=== PATIENT | female | born 1995 | race Caucasian/White ===

== ENCOUNTER 2016-09-17 10:11 | Emergency (ER) | payer MEDICAID ==
[~2016-09-17] VITALS: Ht 167.6 cm; Wt 153.0 kg
[2016-09-17] MEDS ORDERED: SODIUM CHLORIDE FLUSH 10ML SYR IVF ONE (11:00)
[2016-09-17] MEDS ORDERED: SODIUM CHLORIDE 0.9% 1,000ML IVBOLUS ONE (11:00)
[2016-09-17] MEDS ORDERED: KETOROLAC 30 MG/1 ML IVPush ONE (11:00)
[2016-09-17] MEDS ORDERED: LORazepam 2 MG/ML, 1ML IVPush ONE (11:00)
[2016-09-17 11:25] LABS: BLOOD UREA NITROGEN 8 mg/dL (7-18)
[2016-09-17 11:30] LABS: IS PT STATUS REG ER OR PRE ER? YES
[2016-09-17] MEDS ORDERED: KETOROLAC 30 MG/1 ML ONE (11:40)
[2016-09-17] MEDS ORDERED: LORazepam 2 MG/ML, 1ML ONE (11:40)
[2016-09-17 11:45] VITALS: BP 108/70
== END 2016-09-17 12:04 | disposition home or self-care (01) ==
LOC: ED 11:58
DX: R07.89 Other chest pain (principal); F41.1 Generalized anxiety disorder
CPT/HCPCS: 36415; 71020; 80048; 82040; 84484; 84703; 85379; 93005; 96361; 96374; 96375; 99285; J1885; J2060; J7030